=== PATIENT | female | born 1940 | race Caucasian/White ===

== ENCOUNTER 2018-12-10 22:45 | Inpatient (IN) | payer MEDICARE, MEDICAID ==
[~2018-12-10] VITALS: Ht 160 cm; Wt 75.1 kg
[~2018-12-10 22:45] MED LIST: BENA40TA73 PO; CITA20TA28 PO; CLOP75TA15 PO; GABA-532 PO; HCTZ25T PO
[2018-12-10] MEDS ORDERED: fentaNYL/PF 50MCG/1 ML 2ML syringe IV ONE (23:35)
--- NOTE | 2018-12-10 23:48 | NUR ---
VASC CALLED BACK AT 23:48. WILL BE IN SHORTLY
[2018-12-11 02:07] LABS: PARTIAL THROMBOPLASTIN TIME 25 SECONDS (22-32)
[2018-12-11 02:08] LABS: ALANINE AMINOTRANSFERASE 26 U/L (12-78); ALBUMIN 3.3 G/DL (3.4-5.0); ALBUMIN/GLOBULIN RATIO 0.9 (1.1-1.5); ALKALINE PHOSPHATASE 110 IU/L (46-116); ANION GAP 6 (8-16); ASPARTATE AMINO TRANSFERASE 14 U/L (10-37); BILIRUBIN,TOTAL 0.2 MG/DL (0.1-1.0); BLOOD UREA NITROGEN 10 MG/DL (7-18); CALCIUM 9.5 MG/DL (8.5-10.1); CHLORIDE 102 MMOL/L (99-107); CREATININE 0.77 MG/DL (0.40-0.90); GLUCOSE 219 MG/DL (70-104); POTASSIUM 3.4 MMOL/L (3.5-5.1); SODIUM 139 MMOL/L (135-145); TOTAL CARBON DIOXIDE 31.1 MMOL/L (24-32); TOTAL PROTEIN 7.1 G/DL (6.4-8.2); eGFR 72 ML/MIN
[2018-12-11 02:11] LABS: C-REACTIVE PROTEIN 0.13 MG/DL (0.0-0.5); MAGNESIUM 1.5 MG/DL (1.5-2.4); TROPONIN I < 0.04 NG/ML (0.0-0.05)
[2018-12-11 02:23] LABS: BASOPHILS # (AUTO) 0.1 X10'3 (0-0.2); BASOPHILS % (AUTO) 0.5 % (0-1); EOSINOPHILS # (AUTO) 0.1 X10'3 (0-0.9); EOSINOPHILS % (AUTO) 1.3 % (0-6); HEMATOCRIT 34.8 % (35.0-45.0); HEMOGLOBIN 11.4 g/dl (12.0-16.0); LYMPHOCYTES # (AUTO) 2.9 X10'3 (1.1-4.8); LYMPHOCYTES % (AUTO) 26.5 % (21-51); MEAN CORPUSCULAR HGB CONC 32.7 g/dL (33.0-36.5); MEAN CORPUSCULAR VOLUME 85.6 FL (78-98); MEAN PLATELET VOLUME 8.3 FL (7.4-10.4); MONOCYTES % (AUTO) 8.7 % (2-12); NEUTROPHILS # (AUTO) 6.9 X10'3 (1.8-7.7); PLATELET COUNT 405 X10'3 (140-440); RED BLOOD COUNT 4.07 X10'6 (4.20-5.60); RED CELL DISTRIBUTION WIDTH 17.4 % (11.5-14.5)
[2018-12-11] MEDS ORDERED: aspirin 325mg tablet PO ONE (02:30)
[2018-12-11] MEDS ORDERED: CefTRIAXone/D5W-Rocephin 1gm 50 ML IV ONE (02:30)
[2018-12-11] MEDS ORDERED: vancomycin/NS 1 GM ADD-VANTAGE 250 ML IV ONE (02:45)
[2018-12-11] MEDS ORDERED: FERR142T14 (02:52)
[2018-12-11] MEDS ORDERED: PSYL3.4P5 PO (02:53)
[2018-12-11] MEDS ORDERED: ATOR40TA PO (02:54)
[2018-12-11] MEDS ORDERED: HYDR-4353 PO (02:54)
[2018-12-11] MEDS ORDERED: GLIM4TAB4 PO (02:55)
[2018-12-11] MEDS ORDERED: METF500T PO (02:56)
[2018-12-11] MEDS ORDERED: ASCO500C15 PO (02:57)
[2018-12-11] MEDS ORDERED: ALB0.5UD IH (02:57)
[2018-12-11] MEDS ORDERED: FLUT16SP2 BOTHNARES (02:59)
[2018-12-11] MEDS ORDERED: glucagon, human recombinant 1mg kit SUBCUT PRN (03:20)
[2018-12-11] MEDS ORDERED: ondansetron/PF 4mg/2ml inj IV PRN (03:20)
[2018-12-11] MEDS ORDERED: acetaminophen 325mg tablet PO PRN (03:20)
[2018-12-11] MEDS ORDERED: HYDROcodone/acetaminophen 5mg/325mg tablet PO PRN (03:20)
[2018-12-11] MEDS ORDERED: MESSAGE TO PHARMACY PO ONE (03:20)
[2018-12-11] MEDS ORDERED: dextrose 50%-water 50ml dispensing syringe IV PRN ×2 (03:20)
[2018-12-11] MEDS ORDERED: mag hydrox/Alum hydrox/simeth 30ml oral suspension PO PRN (03:20)
[2018-12-11] MEDS ORDERED: magnesium hydroxide 30ml (MOM) UD suspension PO PRN (03:20)
[2018-12-11] MEDS ORDERED: dextrose ORAL solution 15 GM/59 ML bottle PO PRN ×2 (03:20)
[2018-12-11] MEDS ORDERED: HYDROcodone/acetaminophen 10/325mg tab PO PRN (03:25)
[2018-12-11] MEDS: normal saline 1000ml 1,000 ML IV SCH (04:20)
[2018-12-11] MEDS: fluticasone nasal spray 16GM bottle NS SCH (08:00)
[2018-12-11] MEDS: CefTRIAXone/D5W-Rocephin 1gm 50 ML IV SCH ×2 (08:00→08:34)
[2018-12-11] MEDS: HYDROcodone/acetaminophen 10/325mg tab PO PRN ×2 (08:35→15:17)
[2018-12-11] MEDS: citalopram 20mg tablet PO SCH (08:37)
[2018-12-11] MEDS: clopidogrel 75mg tablet PO SCH (08:37)
[2018-12-11] MEDS: atorvastatin 20mg tablet PO SCH (08:37)
[2018-12-11] MEDS: heparin, porcine 5000 units/ml vial SQ SCH ×2 (08:38→20:17)
[2018-12-11] MEDS: lisinopril 20mg tablet PO SCH (08:38)
[2018-12-11] MEDS: ascorbic acid 500mg tablet PO SCH (08:38)
[2018-12-11 08:42] LABS: COLOR,URINE YELLOW (Yellow); GLUCOSE, URINE 100 mg/dl (Neg); KETONES,URINE NEGATIVE (Neg); LEUKOCYTE ESTERASE ,URINE SMALL (Neg); NITRITES, URINE NEGATIVE (Neg); OCCULT BLOOD,URINE NEGATIVE (Neg); PH,URINE 5.5 (4.8-8.0); PROTEIN,URINE NEGATIVE (Neg); UROBILINOGEN,URINE 0.2 E.U/dL (0.2-1.0)
[2018-12-11 08:46] LABS: CLARITY,URINE SLIGHTLY CLOUDY (Clear); UA COLLECTION TYPE CLN CATCH MIDSTREAM
[2018-12-11 08:50] LABS: BACTERIA,URINE 1+ /HPF (Neg); MUCUS STRANDS NONE SEEN /LPF (Neg); RBC,URINE NONE SEEN /HPF (0-2); RENAL CELLS, URINE FEW /HPF; SQUAMOUS EPITHELIAL CELL,UR MODERATE /LPF (FEW); WBC CLUMPS,URINE FEW /HPF (NEGATIVE)
[2018-12-11] MEDS: vancomycin/NS 1 GM ADD-VANTAGE 250 ML IV SCH (16:44)
[2018-12-11 18:30] VITALS: BP 130/51
[2018-12-11] MEDS: lactobacillus rhamnosus 10,000 MMU CELLS/CAPSULE PO SCH (20:16)
[2018-12-11] MEDS: insulin glargine (Lantus) pen - multi-dose SQ SCH (21:00)
[2018-12-11 23:00] VITALS: BP 124/52
[2018-12-12] MEDS: normal saline 1000ml 1,000 ML IV SCH ×2 (00:14→19:43)
[2018-12-12] MEDS: HYDROcodone/acetaminophen 10/325mg tab PO PRN ×5 (00:15→23:57)
[2018-12-12] MEDS: vancomycin/NS 1 GM ADD-VANTAGE 250 ML IV SCH (03:47)
[2018-12-12 06:00] VITALS: BP 193/66
--- NOTE | 2018-12-12 06:33 | NUR ---
Problems reprioritized. Patient report given, questions answered & plan of care reviewed with NI. Addendum: 12/12/18 at 0634 by Sha Paul RN Amended: Links added.
--- NOTE | 2018-12-12 06:42 | NUR ---
report received from EDWIN Rangel.
[2018-12-12 06:57] LABS: BASOPHILS # (AUTO) 0.1 X10'3 (0-0.2); BASOPHILS % (AUTO) 0.7 % (0-1); EOSINOPHILS # (AUTO) 0.2 X10'3 (0-0.9); EOSINOPHILS % (AUTO) 2.5 % (0-6); HEMATOCRIT 34.6 % (35.0-45.0); HEMOGLOBIN 11.3 g/dl (12.0-16.0); LYMPHOCYTES # (AUTO) 2.6 X10'3 (1.1-4.8); LYMPHOCYTES % (AUTO) 32.5 % (21-51); MEAN CORPUSCULAR HEMOGLOBIN 28.3 PG (27.0-31.0); MEAN CORPUSCULAR HGB CONC 32.7 g/dL (33.0-36.5); MEAN CORPUSCULAR VOLUME 86.6 FL (78-98); MEAN PLATELET VOLUME 8.4 FL (7.4-10.4); MONOCYTES # (AUTO) 0.8 X10'3 (0-0.9); MONOCYTES % (AUTO) 10.1 % (2-12); NEUTROPHILS # (AUTO) 4.3 X10'3 (1.8-7.7); NEUTROPHILS % (AUTO) 54.2 % (42-75); PLATELET COUNT 272 X10'3 (140-440); RED BLOOD COUNT 3.99 X10'6 (4.20-5.60); RED CELL DISTRIBUTION WIDTH 17.3 % (11.5-14.5); WHITE BLOOD COUNT 7.9 X10'3 (4.5-11.0)
[2018-12-12 07:24] LABS: ALANINE AMINOTRANSFERASE 29 U/L (12-78); ALBUMIN 2.9 G/DL (3.4-5.0); ALBUMIN/GLOBULIN RATIO 0.8 (1.1-1.5); ALKALINE PHOSPHATASE 98 IU/L (46-116); ANION GAP 10 (8-16); ASPARTATE AMINO TRANSFERASE 22 U/L (10-37); BILIRUBIN,TOTAL 0.3 MG/DL (0.1-1.0); BLOOD UREA NITROGEN 11 MG/DL (7-18); BUN/CREATININE RATIO 18.6 (6.6-38.0); CALCIUM 8.6 MG/DL (8.5-10.1); CHLORIDE 106 MMOL/L (99-107); CREATININE 0.59 MG/DL (0.40-0.90); GLUCOSE 152 MG/DL (70-104); SODIUM 141 MMOL/L (135-145); TOTAL CARBON DIOXIDE 24.8 MMOL/L (24-32); TOTAL PROTEIN 6.6 G/DL (6.4-8.2); eGFR > 90 ML/MIN
[2018-12-12] MEDS: CefTRIAXone/D5W-Rocephin 1gm 50 ML IV SCH (07:28)
[2018-12-12] MEDS: clopidogrel 75mg tablet PO SCH (07:29)
[2018-12-12] MEDS: atorvastatin 20mg tablet PO SCH (07:29)
[2018-12-12] MEDS: citalopram 20mg tablet PO SCH (07:29)
[2018-12-12] MEDS: ascorbic acid 500mg tablet PO SCH (07:29)
[2018-12-12] MEDS: lactobacillus rhamnosus 10,000 MMU CELLS/CAPSULE PO SCH ×2 (07:29→19:41)
[2018-12-12] MEDS: lisinopril 20mg tablet PO SCH (07:30)
[2018-12-12] MEDS: heparin, porcine 5000 units/ml vial SQ SCH ×2 (07:30→19:49)
[2018-12-12] MEDS: fluticasone nasal spray 16GM bottle NS SCH (07:38)
[2018-12-12] MEDS ORDERED: CEPH250T PO (07:55)
[2018-12-12 10:00] VITALS: BP 143/46
[2018-12-12] MEDS ORDERED: VANCOMYCIN LEVEL IV ONE (15:30)
[2018-12-12 18:00] VITALS: BP 147/70
--- NOTE | 2018-12-12 18:20 | NUR ---
Report given to EDWIN Rogers. Pt gregory.
--- NOTE | 2018-12-12 18:24 | NUR ---
Patient in room ORTHO 4022. I have received report from Gayle PINEDA and Amy hospital nursing assistant and had the opportunity to ask questions and assume patient care.
[2018-12-12] MEDS: VANCOmycin 1250MG/NS 250ml Bag 250 ML IV SCH (19:43)
[2018-12-12] MEDS: insulin glargine (Lantus) pen - multi-dose SQ SCH (21:00)
[2018-12-12 22:00] VITALS: BP 127/61
[2018-12-13] MEDS: VANCOmycin 1250MG/NS 250ml Bag 250 ML IV SCH ×2 (05:49→19:44)
[2018-12-13 06:00] VITALS: BP 161/56
[2018-12-13 06:02] LABS: BASOPHILS % (AUTO) 0.4 % (0-1); EOSINOPHILS # (AUTO) 0.2 X10'3 (0-0.9); EOSINOPHILS % (AUTO) 2.6 % (0-6); HEMATOCRIT 33.3 % (35.0-45.0); HEMOGLOBIN 10.9 g/dl (12.0-16.0); LYMPHOCYTES # (AUTO) 2.6 X10'3 (1.1-4.8); LYMPHOCYTES % (AUTO) 34.8 % (21-51); MEAN CORPUSCULAR HEMOGLOBIN 28.1 PG (27.0-31.0); MEAN CORPUSCULAR HGB CONC 32.8 g/dL (33.0-36.5); MEAN CORPUSCULAR VOLUME 85.6 FL (78-98); MEAN PLATELET VOLUME 8.4 FL (7.4-10.4); MONOCYTES # (AUTO) 0.8 X10'3 (0-0.9); MONOCYTES % (AUTO) 10.4 % (2-12); NEUTROPHILS # (AUTO) 3.8 X10'3 (1.8-7.7); NEUTROPHILS % (AUTO) 51.8 % (42-75); PLATELET COUNT 353 X10'3 (140-440); RED BLOOD COUNT 3.89 X10'6 (4.20-5.60); RED CELL DISTRIBUTION WIDTH 17.4 % (11.5-14.5); WHITE BLOOD COUNT 7.4 X10'3 (4.5-11.0)
--- NOTE | 2018-12-13 06:16 | NUR ---
Problems reprioritized. Patient report given, questions answered & plan of care reviewed with Gayle PINEDA.
--- NOTE | 2018-12-13 06:26 | NUR ---
report received from EDWIN Rogers.
[2018-12-13 06:56] LABS: ALANINE AMINOTRANSFERASE 46 U/L (12-78); ALBUMIN 2.9 G/DL (3.4-5.0); ALBUMIN/GLOBULIN RATIO 0.8 (1.1-1.5); ALKALINE PHOSPHATASE 108 IU/L (46-116); ANION GAP 6 (8-16); ASPARTATE AMINO TRANSFERASE 37 U/L (10-37); BILIRUBIN,TOTAL 0.3 MG/DL (0.1-1.0); BLOOD UREA NITROGEN 12 MG/DL (7-18); BUN/CREATININE RATIO 18.2 (6.6-38.0); CALCIUM 9.3 MG/DL (8.5-10.1); CHLORIDE 107 MMOL/L (99-107); CREATININE 0.66 MG/DL (0.40-0.90); GLUCOSE 147 MG/DL (70-104); POTASSIUM 4.2 MMOL/L (3.5-5.1); SODIUM 140 MMOL/L (135-145); TOTAL CARBON DIOXIDE 26.9 MMOL/L (24-32); TOTAL PROTEIN 6.7 G/DL (6.4-8.2); eGFR 86 ML/MIN
[2018-12-13] MEDS: fluticasone nasal spray 16GM bottle NS SCH (07:23)
[2018-12-13] MEDS: citalopram 20mg tablet PO SCH (07:35)
[2018-12-13] MEDS: lactobacillus rhamnosus 10,000 MMU CELLS/CAPSULE PO SCH ×2 (07:35→19:33)
[2018-12-13] MEDS: atorvastatin 20mg tablet PO SCH (07:36)
[2018-12-13] MEDS: clopidogrel 75mg tablet PO SCH (07:36)
[2018-12-13] MEDS: ascorbic acid 500mg tablet PO SCH (07:37)
[2018-12-13] MEDS: lisinopril 20mg tablet PO SCH (07:37)
[2018-12-13] MEDS: heparin, porcine 5000 units/ml vial SQ SCH ×2 (07:39→19:36)
[2018-12-13] MEDS: CefTRIAXone/D5W-Rocephin 1gm 50 ML IV SCH ×2 (07:46→08:38)
[2018-12-13] MEDS: HYDROcodone/acetaminophen 10/325mg tab PO PRN ×3 (08:44→19:34)
[2018-12-13 10:00] VITALS: BP 192/63
[2018-12-13] MEDS ORDERED: diphenhydrAMINE 25mg capsule PO ONE (10:00)
--- NOTE | 2018-12-13 14:33 | NUR ---
DIABETIC FOOT CARE EDUCATION PROVIDED BY WOUND [facility] * Wash your feet daily with lukewarm water and soap. * Dry your feet well, especially between the toes. * Keep the skin moisturized with lotion, but do not apply it between the toes. * Check your feet for blisters, cuts or sores. * Use an emery board to shape your toenails even with the ends of your toes. * Change daily into clean, soft socks or stockings, not too big or too small. * Keep your feet warm and dry. * Preferably wear special padded socks and shoes that fit well. * Never walk barefoot indoors or outdoors. * Examine your shoes everyday for cracks, tony, nails or anything that could hurt your feet. * Tell your doctor if you find any of these problems or have any concerns after examining your feet. Addendum: 12/13/18 at 1433 by Edith Graves RN Amended: Links added.
[2018-12-13] MEDS: albuterol 2.5 MG/3 ML nebule NEB PRN (16:41)
--- NOTE | 2018-12-13 18:29 | NUR ---
Report given to EDWIN Correa, pt stable.
--- NOTE | 2018-12-13 18:30 | NUR ---
Patient in room ORTHO 4022. I have received report from NI PINEDA and had the opportunity to ask questions and assume patient care.
[2018-12-13 18:45] VITALS: BP 164/59
[2018-12-13] MEDS: insulin glargine (Lantus) pen - multi-dose SQ SCH (21:00)
[2018-12-13] MEDS: prednisone 10mg tablet PO PRN (21:18)
[2018-12-13 22:00] VITALS: BP 169/57
[2018-12-14] MEDS ORDERED: VANCOMYCIN LEVEL IV ONE (04:30)
[2018-12-14] MEDS: prednisone 10mg tablet PO PRN (04:41)
[2018-12-14] MEDS: VANCOmycin 1250MG/NS 250ml Bag 250 ML IV SCH (05:00)
[2018-12-14 05:11] LABS: BASOPHILS % (AUTO) 0.2 % (0-1); EOSINOPHILS % (AUTO) 0.1 % (0-6); HEMATOCRIT 36.7 % (35.0-45.0); LYMPHOCYTES # (AUTO) 0.8 X10'3 (1.1-4.8); LYMPHOCYTES % (AUTO) 9.2 % (21-51); MEAN CORPUSCULAR HGB CONC 32.6 g/dL (33.0-36.5); MEAN CORPUSCULAR VOLUME 85.8 FL (78-98); MEAN PLATELET VOLUME 8.5 FL (7.4-10.4); MONOCYTES # (AUTO) 0.1 X10'3 (0-0.9); MONOCYTES % (AUTO) 1.2 % (2-12); NEUTROPHILS # (AUTO) 7.6 X10'3 (1.8-7.7); NEUTROPHILS % (AUTO) 89.3 % (42-75); PLATELET COUNT 402 X10'3 (140-440); RED BLOOD COUNT 4.28 X10'6 (4.20-5.60); RED CELL DISTRIBUTION WIDTH 17.5 % (11.5-14.5); WHITE BLOOD COUNT 8.5 X10'3 (4.5-11.0)
[2018-12-14 05:23] LABS: ALANINE AMINOTRANSFERASE 71 U/L (12-78); ALBUMIN 3.3 G/DL (3.4-5.0); ALBUMIN/GLOBULIN RATIO 0.8 (1.1-1.5); ALKALINE PHOSPHATASE 141 IU/L (46-116); ANION GAP 10 (8-16); ASPARTATE AMINO TRANSFERASE 46 U/L (10-37); BILIRUBIN,TOTAL 0.3 MG/DL (0.1-1.0); BLOOD UREA NITROGEN 11 MG/DL (7-18); BUN/CREATININE RATIO 13.6 (6.6-38.0); CALCIUM 9.4 MG/DL (8.5-10.1); CHLORIDE 104 MMOL/L (99-107); CREATININE 0.81 MG/DL (0.40-0.90); GLUCOSE 283 MG/DL (70-104); POTASSIUM 4.1 MMOL/L (3.5-5.1); SODIUM 139 MMOL/L (135-145); TOTAL CARBON DIOXIDE 25.3 MMOL/L (24-32); TOTAL PROTEIN 7.5 G/DL (6.4-8.2); eGFR 68 ML/MIN
[2018-12-14 05:25] LABS: VANCOMYCIN,TROUGH 21.8 UG/ML (6.0-14.0)
[2018-12-14 06:00] VITALS: BP 180/69
--- NOTE | 2018-12-14 06:27 | NUR ---
Problems reprioritized. Patient report given, questions answered & plan of care reviewed with YOON PINEDA.
--- NOTE | 2018-12-14 06:45 | NUR ---
Patient in room ORTHO 4022. I have received report from Miranda Jean RN and had the opportunity to ask questions and assume patient care.
[2018-12-14] MEDS: albuterol 2.5 MG/3 ML nebule NEB PRN (07:52)
[2018-12-14] MEDS: heparin, porcine 5000 units/ml vial SQ SCH ×2 (07:52→19:16)
[2018-12-14] MEDS: vancomycin/NS 1 GM ADD-VANTAGE 250 ML IV SCH ×2 (07:52→19:10)
[2018-12-14] MEDS: ascorbic acid 500mg tablet PO SCH (07:53)
[2018-12-14] MEDS: atorvastatin 20mg tablet PO SCH (07:53)
[2018-12-14] MEDS: lactobacillus rhamnosus 10,000 MMU CELLS/CAPSULE PO SCH ×2 (07:53→19:10)
[2018-12-14] MEDS: citalopram 20mg tablet PO SCH (07:53)
[2018-12-14] MEDS: lisinopril 20mg tablet PO SCH (07:53)
[2018-12-14] MEDS: clopidogrel 75mg tablet PO SCH (07:54)
[2018-12-14] MEDS: fluticasone nasal spray 16GM bottle NS SCH (08:00)
[2018-12-14] MEDS: HYDROcodone/acetaminophen 10/325mg tab PO PRN ×3 (08:19→19:11)
[2018-12-14] MEDS: insulin Lispro (HumaLOG) vial - multi-dose SQ SCH ×4 (08:29→21:07)
[2018-12-14] MEDS ORDERED: diphenhydrAMINE 25mg capsule PO ONE (09:00)
[2018-12-14 10:00] VITALS: BP 143/63
[2018-12-14] MEDS ORDERED: prednisone 10mg tablet PO ONE (10:25)
[2018-12-14] MEDS ORDERED: iohexol 350MG/ML 100ml bottle IV ONE (11:41)
[2018-12-14] MEDS ORDERED: MESSAGE TO NURSING PO ONE (12:30)
--- NOTE | 2018-12-14 15:22 | NUR ---
Cleopatra hospitalist [phone] CT resulted, will continue to monitor
[2018-12-14] MEDS ORDERED: regadenoson 0.4mg/5ml syringe IV ONE (16:30)
[2018-12-14] MEDS ORDERED: nitroGLYCERIN 0.4mg SUBLingual tab SL PRN (16:30)
[2018-12-14] MEDS ORDERED: metoprolol tartrate 1mg/ml inj IV PRN (16:30)
[2018-12-14] MEDS ORDERED: aminophylline 250mg/10ml inj. IV PRN (16:30)
[2018-12-14 18:00] VITALS: BP 143/62
--- NOTE | 2018-12-14 18:21 | NUR ---
Problems reprioritized. Patient report given, questions answered & plan of care reviewed with Pretty PINEDA.
--- NOTE | 2018-12-14 18:21 | NUR ---
Received report from Carlos PINEDA.
[2018-12-14] MEDS: insulin glargine (Lantus) pen - multi-dose SQ SCH (21:07)
[2018-12-14 22:00] VITALS: BP 145/50
[2018-12-15] VITALS (32 sets, daily range): BP systolic 101–203; BP diastolic 34–92
--- NOTE | 2018-12-15 06:22 | NUR ---
Report given to Ephraim PINEDA.
--- NOTE | 2018-12-15 06:25 | NUR ---
Patient in room ORTHO 4022. I have received report from Pretty PINEDA and had the opportunity to ask questions and assume patient care.
[2018-12-15 06:30] LABS: BASOPHILS % (AUTO) 0.4 % (0-1); EOSINOPHILS % (AUTO) 0.2 % (0-6); HEMATOCRIT 31.1 % (35.0-45.0); HEMOGLOBIN 10.4 g/dl (12.0-16.0); LYMPHOCYTES # (AUTO) 2.3 X10'3 (1.1-4.8); LYMPHOCYTES % (AUTO) 21.1 % (21-51); MEAN CORPUSCULAR HEMOGLOBIN 28.5 PG (27.0-31.0); MEAN CORPUSCULAR HGB CONC 33.3 g/dL (33.0-36.5); MEAN CORPUSCULAR VOLUME 85.4 FL (78-98); MEAN PLATELET VOLUME 8.9 FL (7.4-10.4); MONOCYTES # (AUTO) 1.1 X10'3 (0-0.9); NEUTROPHILS # (AUTO) 7.6 X10'3 (1.8-7.7); NEUTROPHILS % (AUTO) 68.3 % (42-75); PLATELET COUNT 339 X10'3 (140-440); RED BLOOD COUNT 3.64 X10'6 (4.20-5.60); WHITE BLOOD COUNT 11.1 X10'3 (4.5-11.0)
[2018-12-15 06:47] LABS: ALANINE AMINOTRANSFERASE 55 U/L (12-78); ALBUMIN 2.8 G/DL (3.4-5.0); ALBUMIN/GLOBULIN RATIO 0.8 (1.1-1.5); ALKALINE PHOSPHATASE 100 IU/L (46-116); ANION GAP 8 (8-16); ASPARTATE AMINO TRANSFERASE 28 U/L (10-37); BILIRUBIN,TOTAL 0.2 MG/DL (0.1-1.0); BLOOD UREA NITROGEN 13 MG/DL (7-18); BUN/CREATININE RATIO 21.7 (6.6-38.0); CALCIUM 9.1 MG/DL (8.5-10.1); CHLORIDE 106 MMOL/L (99-107); GLUCOSE 154 MG/DL (70-104); POTASSIUM 3.4 MMOL/L (3.5-5.1); SODIUM 142 MMOL/L (135-145); TOTAL PROTEIN 6.1 G/DL (6.4-8.2); eGFR > 90 ML/MIN
[2018-12-15] MEDS ORDERED: iohexol 300 MG/1 ML 50ml polymer ONE (07:04)
[2018-12-15] MEDS ORDERED: heparin 10,000 units/1 ML INJ ONE (07:06)
[2018-12-15] MEDS: lactobacillus rhamnosus 10,000 MMU CELLS/CAPSULE PO SCH ×2 (07:07→20:00)
[2018-12-15] MEDS: vancomycin/NS 1 GM ADD-VANTAGE 250 ML IV SCH ×2 (07:07→19:36)
[2018-12-15] MEDS: lisinopril 20mg tablet PO SCH (07:08)
[2018-12-15] MEDS: atorvastatin 20mg tablet PO SCH (07:08)
[2018-12-15] MEDS: fluticasone nasal spray 16GM bottle NS SCH (07:09)
[2018-12-15] MEDS: citalopram 20mg tablet PO SCH (07:09)
[2018-12-15] MEDS: clopidogrel 75mg tablet PO SCH (07:09)
[2018-12-15] MEDS: heparin, porcine 5000 units/ml vial SQ SCH (07:10)
[2018-12-15] MEDS: ascorbic acid 500mg tablet PO SCH (07:12)
[2018-12-15] MEDS ORDERED: regadenoson 0.4mg/5ml syringe IV ONE (08:00)
--- NOTE | 2018-12-15 08:30 | NUR ---
left floor for Camelia scan
--- NOTE | 2018-12-15 08:41 | NUR ---
patient refused insulin. patient educated on risk of hyperglycemia .
--- NOTE | 2018-12-15 09:12 | NUR ---
Ephraim 4907 Re: White. Potassium 3.4. do you want me to replace?
--- NOTE | 2018-12-15 09:17 | NUR ---
did not give patient insulin. Patient was NPO for morning surgery and 0700 BS 154.
[2018-12-15] MEDS: HYDROcodone/acetaminophen 10/325mg tab PO PRN (10:40)
--- NOTE | 2018-12-15 11:13 | NUR ---
Student documentation: I have reviewed interventions, assessments performed and documented by NEELIMA Mauro [facility].
[2018-12-15] MEDS ORDERED: LIDOcaine 1% W/epiNEPHrine 1:200,000 10ml vial ONE (12:07)
[2018-12-15] MEDS ORDERED: LIDOcaine 1% (10mg/ml) 2ml vial ONE (12:09)
--- NOTE | 2018-12-15 13:03 | NUR ---
patient going for surgery. BS was 133 at 1200. held insulin.
--- NOTE | 2018-12-15 13:03 | NUR ---
patient refused insulin. notified.
--- NOTE | 2018-12-15 13:15 | NUR ---
went down to surgery
[2018-12-15] MEDS ORDERED: sevoflurane 250ml liquid IH ONE (14:06)
[2018-12-15] MEDS ORDERED: phenylephrine 10mg/ml inj. ONE (14:06)
--- NOTE | 2018-12-15 14:18 | NUR ---
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 L toe open full-thickness ulcer w/ 5th toe old wound mostly healed per WOC notes. Hx T2DM A1C <7. Pt PO 75-100% avg carb controlled meals meeting healing needs. Receiving vitamin C. LBM 12/10; SCOTTY d/w RN regarding routine bowel care per MD approval. Will continue to monitor. Rec: 1. continue carb controlled diet 2. monitor for ONS needs if PO declines 3. wt per rx Addendum: 12/15/18 at [address] Amended: Links added.
[2018-12-15] MEDS ORDERED: fentaNYL /PF 50mcg/ml 5ml ampule ONE (15:05)
[2018-12-15] MEDS ORDERED: ceFOXitin 2 GM ADDvantage bag 100 ML IV ONE (15:54)
[2018-12-15] MEDS ORDERED: ringers solution, lacted 1,000 ML IV SCH (16:19)
[2018-12-15] MEDS ORDERED: HYDROmorphone inj. 0.5 MG/0.5 ML DISP.SYRIN IV PRN (16:20)
--- NOTE | 2018-12-15 16:52 | NUR ---
Problems reprioritized. Patient report given, questions answered & plan of care reviewed with Charles PINEDA.
[2018-12-15] MEDS ORDERED: glycopyrrolate 0.2mg/ml inj ONE ×2 (16:53→17:53)
[2018-12-15] MEDS ORDERED: propofol inj 20 ML IV ONE (16:53)
[2018-12-15] MEDS ORDERED: neostigmine methylsulfate 1 MG/ML 10ml vial ONE ×2 (16:53→17:53)
[2018-12-15] MEDS ORDERED: LIDOcaine 2% (20mg/ml) 5ml vial ONE (16:53)
[2018-12-15] MEDS ORDERED: ePHEDrine 50MG/ML INJ. ONE (16:53)
[2018-12-15] MEDS ORDERED: labetalol 20mg/4ml (5mg/ml) syringe IV ONE (16:53)
[2018-12-15] MEDS ORDERED: ondansetron/PF 4mg/2ml inj ONE (16:53)
[2018-12-15] MEDS ORDERED: rocuronium 10mg/ml inj IV ONE (16:53)
[2018-12-15] MEDS ORDERED: sugammadex 200mg/2ml injection IV ONE (17:05)
[2018-12-15] MEDS ORDERED: protamine sulfate 10mg/ml inj. ONE (17:05)
[2018-12-15] MEDS ORDERED: insulin regular, human vial - multi-dose ONE (17:11)
--- NOTE | 2018-12-15 17:32 | NUR ---
Received from OR via , accompanied by Anesthesiologist DR STREETER and report given by Anesthesiolgist. AWAKENS TO VOICE. VITALS STABLE. DRESSINGS DI. STATES MODERATE LT GROIN PAIN. WILL MEDICATE. DENTON WITH CLEAR URINE.
[2018-12-15 17:38] LABS: PARTIAL THROMBOPLASTIN TIME 25 SECONDS (22-32)
[2018-12-15] MEDS: morphine 4 MG/ML inj SYRINge IV PRN ×3 (17:51→22:44)
[2018-12-15] MEDS ORDERED: hydrALAZINE 20mg/ml inj. IV ONE (17:53)
[2018-12-15 17:56] LABS: ISTAT ANION GAP 14 (8-12); ISTAT BUN 8 mg/dL (6-19); ISTAT CL 105 mmol/L (99-107); ISTAT CREATININE 0.4 mg/dL (0.6-1.1); ISTAT GLUCOSE 140 mg/dL (70-104); ISTAT HGB 8.8 g/dl (12.0-16.0); ISTAT Hct 26 %PCV (35-48); ISTAT NA 141 mmol/L (135-145); ISTAT TOTAL CO2 22 mmol/L (24-32); ISTAT eGFR > 90 ML/MIN
[2018-12-15] MEDS ORDERED: HYDROcodone/acetaminophen 10/325mg tab PO PRN (18:10)
[2018-12-15] MEDS ORDERED: VANCOMYCIN LEVEL IV ONE (18:30)
--- NOTE | 2018-12-15 18:42 | NUR ---
Report called to receiving nurse. Transferred via BED Belongings . Special Issues communicated to receiving nurse. AWAKE AND ORIENTED. VITALS STABLE. DRESSINGS DI. STATES PAIN IMPROVING. TO ICU RM 2041 AT THIS TIME.
[2018-12-15 18:51] LABS: ISTAT K 2.8 mmol/L (3.5-5.1)
--- NOTE | 2018-12-15 19:10 | NUR ---
K+ results received 3.0 from Kat in Lab, results called to Dr. Saleh, orders received.
[2018-12-15] MEDS ORDERED: magnesium 4gm in 100ml NS 100 ML IV PRN (19:15)
[2018-12-15] MEDS ORDERED: magnesium 2GM in 50ml NS 50 ML IV PRN (19:15)
[2018-12-15] MEDS ORDERED: potassium Cl 20 mEq SR tablet PO PRN (19:15)
[2018-12-15] MEDS: potassium Cl 20mEq/100mL bag 100 ML IV PRN ×4 (19:42→22:45)
--- NOTE | 2018-12-15 19:50 | NUR ---
Pt arrived from recovery room, awake & alert. Right IJ triple lumen central line is transduced. LR infusing at 100ml/hr. Right radial arterial line intact, right hand is warm with brisk capillary refill. Left groin with wound vac, left calf with occlusive dressing, drainage marked. bilateral pedal/posterior tibial pulses with doppler only. Left foot is warm with brisk capillary refill. Indwelling souza cath drains clear yellow urine.Pt nauseated upon arrival, nausea subsided shortly upon arrival.
[2018-12-15] MEDS ORDERED: ceFOXitin 2 GM ADDvantage bag 100 ML IV SCH (20:00)
[2018-12-15] MEDS: insulin glargine (Lantus) pen - multi-dose SQ SCH (21:00)
[2018-12-15 22:31] LABS: ISTAT ANION GAP 12 (8-12); ISTAT BUN 9 mg/dL (6-19); ISTAT CL 104 mmol/L (99-107); ISTAT CREATININE 0.4 mg/dL (0.6-1.1); ISTAT GLUCOSE 171 mg/dL (70-104); ISTAT HGB 8.5 g/dl (12.0-16.0); ISTAT Hct 25 %PCV (35-48); ISTAT IONIZED CALCIUM 1.22 mmol/L (1.03-1.32); ISTAT K 3.3 mmol/L (3.5-5.1); ISTAT NA 140 mmol/L (135-145); ISTAT TOTAL CO2 24 mmol/L (24-32); ISTAT eGFR > 90 ML/MIN; POC BUN/CREATININE RATIO 22.5 (6.6-38.0)
[2018-12-16] VITALS (26 sets, daily range): BP systolic 105–188; BP diastolic 39–63
[2018-12-16] MEDS: HYDROmorphone inj. 0.5 MG/0.5 ML DISP.SYRIN IV PRN ×2 (00:06→04:33)
[2018-12-16] MEDS: HYDROcodone/acetaminophen 10/325mg tab PO PRN ×2 (01:36→20:35)
[2018-12-16 02:57] LABS: BASOPHILS % (AUTO) 0.3 % (0-1); EOSINOPHILS % (AUTO) 0.1 % (0-6); HEMATOCRIT 26.3 % (35.0-45.0); HEMOGLOBIN 8.5 g/dl (12.0-16.0); LYMPHOCYTES # (AUTO) 1.5 X10'3 (1.1-4.8); LYMPHOCYTES % (AUTO) 12.6 % (21-51); MEAN CORPUSCULAR HEMOGLOBIN 28.1 PG (27.0-31.0); MEAN CORPUSCULAR HGB CONC 32.3 g/dL (33.0-36.5); MEAN PLATELET VOLUME 8.7 FL (7.4-10.4); MONOCYTES # (AUTO) 1.3 X10'3 (0-0.9); MONOCYTES % (AUTO) 10.9 % (2-12); NEUTROPHILS # (AUTO) 8.8 X10'3 (1.8-7.7); NEUTROPHILS % (AUTO) 76.1 % (42-75); PLATELET COUNT 299 X10'3 (140-440); RED BLOOD COUNT 3.02 X10'6 (4.20-5.60); RED CELL DISTRIBUTION WIDTH 17.9 % (11.5-14.5); WHITE BLOOD COUNT 11.6 X10'3 (4.5-11.0)
[2018-12-16 03:09] LABS: ALANINE AMINOTRANSFERASE 46 U/L (12-78); ALBUMIN 2.6 G/DL (3.4-5.0); ALBUMIN/GLOBULIN RATIO 0.9 (1.1-1.5); ALKALINE PHOSPHATASE 85 IU/L (46-116); ANION GAP 5 (8-16); ASPARTATE AMINO TRANSFERASE 22 U/L (10-37); BILIRUBIN,TOTAL 0.3 MG/DL (0.1-1.0); BLOOD UREA NITROGEN 10 MG/DL (7-18); BUN/CREATININE RATIO 16.1 (6.6-38.0); CALCIUM 7.7 MG/DL (8.5-10.1); CHLORIDE 110 MMOL/L (99-107); CHOL/HDL RATIO 2.5 (0.00-4.99); CHOLESTEROL 104 MG/DL (0-200); CREATININE 0.62 MG/DL (0.40-0.90); GLUCOSE 143 MG/DL (70-104); HDL CHOLESTEROL 42 MG/DL (35-60); LDL CHOLESTEROL 51 MG/DL (50-100); POTASSIUM 4.5 MMOL/L (3.5-5.1); SODIUM 141 MMOL/L (135-145); TOTAL CARBON DIOXIDE 25.6 MMOL/L (24-32); TOTAL PROTEIN 5.5 G/DL (6.4-8.2); TRIGLYCERIDES 63 MG/DL (20-135); eGFR > 90 ML/MIN
[2018-12-16] MEDS ORDERED: enalaprilat dihydrate 2.5mg/2ml vial IV PRN ×2 (04:10→04:15)
--- NOTE | 2018-12-16 04:12 | NUR ---
SBP elevated 180's. Orders received for Vasotec. Awaiting pharmacy verification to administer.
--- NOTE | 2018-12-16 04:45 | NUR ---
BP 147/45 pt resting comfortably at this time.
[2018-12-16] MEDS: morphine 4 MG/ML inj SYRINge IV PRN (04:47)
[2018-12-16] MEDS ORDERED: ringers solution, lacted 1,000 ML IV SCH (05:10)
[2018-12-16 05:53] LABS: MAGNESIUM 1.5 MG/DL (1.5-2.4)
[2018-12-16] MEDS ORDERED: enalaprilat dihydrate 2.5mg/2ml vial IV SCH (06:00)
[2018-12-16] MEDS: ceFOXitin 2 GM ADDvantage bag 100 ML IV SCH ×2 (06:16→12:00)
--- NOTE | 2018-12-16 06:35 | NUR ---
Problems reprioritized. Patient report given, questions answered & plan of care reviewed with Aislinn PINEDA.
[2018-12-16] MEDS: fluticasone nasal spray 16GM bottle NS SCH (08:00)
[2018-12-16] MEDS: K and/or MAG REPLACEMENT MC SCH (08:00)
[2018-12-16] MEDS: VANCOmycin 1250MG/NS 250ml Bag 250 ML IV SCH ×2 (09:06→20:21)
[2018-12-16] MEDS: atorvastatin 20mg tablet PO SCH (09:06)
[2018-12-16] MEDS: ascorbic acid 500mg tablet PO SCH (09:07)
[2018-12-16] MEDS: lisinopril 20mg tablet PO SCH (09:07)
[2018-12-16] MEDS: citalopram 20mg tablet PO SCH (09:07)
[2018-12-16] MEDS: lactobacillus rhamnosus 10,000 MMU CELLS/CAPSULE PO SCH ×2 (09:08→20:21)
[2018-12-16] MEDS: clopidogrel 75mg tablet PO SCH (09:08)
[2018-12-16] MEDS ORDERED: HYDROmorphone 1 mg/ml syringe ONE (11:30)
[2018-12-16] MEDS ORDERED: ceFOXitin 2 GM ADDvantage bag 100 ML IV SCH (13:17)
--- NOTE | 2018-12-16 17:50 | NUR ---
Pt.'s L leg more swollen, skin shiny, tighter. Dr. Mcdermott is aware. Pulses present with doppler. Pt. stated that pain remains the same and has not gotten worse.
--- NOTE | 2018-12-16 18:50 | NUR ---
Patient in room ICU 2041. I have received report from EDWIN Tao and had the opportunity to ask questions and assume patient care. Patients left lower extremity examined with EDWIN Tao. Pedal pulses marked and present with dopplar. Dr. Mcdermott at bedside to look at left leg. He will talk to Dr. Saleh.
--- NOTE | 2018-12-16 19:05 | NUR ---
Report given to EDWIN Jimenez
--- NOTE | 2018-12-16 19:48 | NUR ---
Call to Dr. Saleh re: increase in left leg swelling. Skin is shiny, Patient c/o pain at 6/10 states its not getting any worse and is much better than before her surgery. Pedal pulses intact. Per Dr. Saleh no new orders at this time. Continue to monitor call back if the calf becomes tight.
--- NOTE | 2018-12-16 20:51 | NUR ---
calf measurement 35 cm
[2018-12-16] MEDS: insulin Lispro (HumaLOG) vial - multi-dose SQ SCH (22:10)
[2018-12-16] MEDS: insulin glargine (Lantus) pen - multi-dose SQ SCH (22:12)
[2018-12-17] VITALS (20 sets, daily range): BP systolic 122–190; BP diastolic 37–65
[2018-12-17 04:11] LABS: BASOPHILS # (AUTO) 0.1 X10'3 (0-0.2); BASOPHILS % (AUTO) 0.8 % (0-1); EOSINOPHILS # (AUTO) 0.1 X10'3 (0-0.9); EOSINOPHILS % (AUTO) 0.9 % (0-6); HEMATOCRIT 23.4 % (35.0-45.0); HEMOGLOBIN 7.7 g/dl (12.0-16.0); LYMPHOCYTES # (AUTO) 1.8 X10'3 (1.1-4.8); LYMPHOCYTES % (AUTO) 19.3 % (21-51); MEAN CORPUSCULAR HEMOGLOBIN 28.8 PG (27.0-31.0); MEAN CORPUSCULAR VOLUME 87.2 FL (78-98); MEAN PLATELET VOLUME 8.9 FL (7.4-10.4); MONOCYTES # (AUTO) 1.3 X10'3 (0-0.9); MONOCYTES % (AUTO) 13.6 % (2-12); NEUTROPHILS # (AUTO) 6.2 X10'3 (1.8-7.7); NEUTROPHILS % (AUTO) 65.4 % (42-75); PLATELET COUNT 228 X10'3 (140-440); RED BLOOD COUNT 2.68 X10'6 (4.20-5.60); RED CELL DISTRIBUTION WIDTH 17.3 % (11.5-14.5); WHITE BLOOD COUNT 9.5 X10'3 (4.5-11.0)
[2018-12-17 04:32] LABS: ALANINE AMINOTRANSFERASE 34 U/L (12-78); ALBUMIN 2.2 G/DL (3.4-5.0); ALBUMIN/GLOBULIN RATIO 0.7 (1.1-1.5); ALKALINE PHOSPHATASE 74 IU/L (46-116); ANION GAP 8 (8-16); ASPARTATE AMINO TRANSFERASE 16 U/L (10-37); BILIRUBIN,TOTAL 0.5 MG/DL (0.1-1.0); BLOOD UREA NITROGEN 5 MG/DL (7-18); BUN/CREATININE RATIO 9.3 (6.6-38.0); CALCIUM 8.5 MG/DL (8.5-10.1); CHLORIDE 105 MMOL/L (99-107); CREATININE 0.54 MG/DL (0.40-0.90); GLUCOSE 175 MG/DL (70-104); MAGNESIUM 1.8 MG/DL (1.5-2.4); POTASSIUM 3.4 MMOL/L (3.5-5.1); SODIUM 140 MMOL/L (135-145); TOTAL CARBON DIOXIDE 26.9 MMOL/L (24-32); TOTAL PROTEIN 5.4 G/DL (6.4-8.2); eGFR > 90 ML/MIN
[2018-12-17] MEDS: HYDROcodone/acetaminophen 10/325mg tab PO PRN ×3 (05:59→21:23)
--- NOTE | 2018-12-17 06:28 | NUR ---
Problems reprioritized. Patient report given, questions answered & plan of care reviewed with EDWIN Tao and EDWIN Lowe.
[2018-12-17] MEDS: VANCOmycin 1250MG/NS 250ml Bag 250 ML IV SCH ×2 (07:44→19:00)
[2018-12-17] MEDS: lactobacillus rhamnosus 10,000 MMU CELLS/CAPSULE PO SCH ×2 (07:44→20:00)
[2018-12-17] MEDS: atorvastatin 20mg tablet PO SCH (07:44)
[2018-12-17] MEDS: ascorbic acid 500mg tablet PO SCH (07:45)
[2018-12-17] MEDS: clopidogrel 75mg tablet PO SCH (07:45)
[2018-12-17] MEDS: citalopram 20mg tablet PO SCH (07:45)
[2018-12-17] MEDS: docusate sod 100mg capsule PO SCH ×2 (07:45→20:00)
[2018-12-17] MEDS: lisinopril 20mg tablet PO SCH (07:47)
[2018-12-17] MEDS: K and/or MAG REPLACEMENT MC SCH (08:00)
[2018-12-17] MEDS: fluticasone nasal spray 16GM bottle NS SCH (08:00)
[2018-12-17] MEDS: potassium Cl 20 mEq SR tablet PO PRN ×3 (09:05→17:22)
[2018-12-17] MEDS: CefTRIAXone 2gm/D5W 50ml 50 ML IV SCH (09:05)
[2018-12-17] MEDS: insulin Lispro (HumaLOG) vial - multi-dose SQ SCH ×2 (10:13→13:47)
--- NOTE | 2018-12-17 16:30 | NUR ---
Patient in room [facility] 355. I have received report from Kimberly PINEDA and had the opportunity to ask questions and assume patient care.
--- NOTE | 2018-12-17 16:34 | NUR ---
pt report given to Branden RN; all questions answered.
--- NOTE | 2018-12-17 16:50 | NUR ---
removed pt's central line; cannula intact. held pressure for 10min. pt tolerated well.
--- NOTE | 2018-12-17 17:00 | NUR ---
removed pt's souza catheter. pt tolerated well. will continue to monitor.
--- NOTE | 2018-12-17 17:30 | NUR ---
pt transported to 355B on surgical hospital bed with all belongings; VSS.
--- NOTE | 2018-12-17 17:40 | NUR ---
Patient arrived to floor, patient was introduced and made accustomed to her room. Patient vitals were taken at this time. Patient hearts sounds were s1s2, and patient respirations were fine crackles. Patient breathing even at this time. Patient had no emmediate needs but requested a light dinner at this time.
[2018-12-17] MEDS ORDERED: VANCOMYCIN LEVEL IV ONE (18:30)
--- NOTE | 2018-12-17 18:30 | NUR ---
Problems reprioritized. Patient report given, questions answered & plan of care reviewed with Giuliana PINEDA.
[2018-12-17] MEDS ORDERED: ipratropium/albuterol 3ml nebule NEB PRN (18:50)
--- NOTE | 2018-12-17 18:55 | NUR ---
Patient in room [facility] 355. I have received report from Branden Monroe and had the opportunity to ask questions and assume patient care. Addendum: 12/17/18 at 1856 by Giuliana Najera RN Amended: Links added.
[2018-12-17] MEDS: albuterol 2.5 MG/3 ML nebule NEB PRN (20:12)
--- NOTE | 2018-12-17 20:30 | NUR ---
noted bilat posterior tibial pulses present by doppler. feet warm bialt. had Rt Tx earlier. tolerated well. given Is unit and using it
--- NOTE | 2018-12-17 21:00 | NUR ---
accucheck done pt had only eaten a yogurt did not feel like eating anything else and covered with insulin for this. dressing to left groin intact with provena wound vac in place and dressing to left calf d/i
[2018-12-17] MEDS: insulin glargine (Lantus) pen - multi-dose SQ SCH (21:27)
--- NOTE | 2018-12-17 23:18 | NUR ---
pt resting eyes closed without s&s of distress at this time.
[2018-12-18] VITALS: BP 154/52
--- NOTE | 2018-12-18 01:15 | NUR ---
pt resting without changes.
--- NOTE | 2018-12-18 03:15 | NUR ---
resting without changes at this time.
--- NOTE | 2018-12-18 04:54 | NUR ---
resting eyes closed without changes.
--- NOTE | 2018-12-18 05:30 | NUR ---
resting without changes.
--- NOTE | 2018-12-18 06:30 | NUR ---
Patient in room [facility] 355. I have received report from Giuliana PINEDA and had the opportunity to ask questions and assume patient care.
--- NOTE | 2018-12-18 06:37 | NUR ---
Problems reprioritized. Patient report given, questions answered & plan of care reviewed with Branden Monroe. Addendum: 12/18/18 at 0638 by Giuliana Najera RN Amended: Links added.
--- NOTE | 2018-12-18 06:43 | NUR ---
Problems reprioritized. Patient report given, questions answered & plan of care reviewed with Branden Monroe. Addendum: 12/18/18 at 0645 by Giuliana Najera RN Amended: Links added.
[2018-12-18 07:00] VITALS: BP 181/63
[2018-12-18] MEDS: docusate sod 100mg capsule PO SCH ×2 (07:38→20:07)
[2018-12-18] MEDS: HYDROcodone/acetaminophen 10/325mg tab PO PRN ×2 (07:39→17:52)
[2018-12-18] MEDS: ascorbic acid 500mg tablet PO SCH (07:40)
[2018-12-18] MEDS: lisinopril 20mg tablet PO SCH (07:40)
[2018-12-18] MEDS: lactobacillus rhamnosus 10,000 MMU CELLS/CAPSULE PO SCH ×2 (07:40→20:07)
[2018-12-18] MEDS: clopidogrel 75mg tablet PO SCH (07:40)
[2018-12-18] MEDS: citalopram 20mg tablet PO SCH (07:41)
[2018-12-18] MEDS: CefTRIAXone 2gm/D5W 50ml 50 ML IV SCH (07:43)
[2018-12-18] MEDS: fluticasone nasal spray 16GM bottle NS SCH (07:43)
[2018-12-18] MEDS: K and/or MAG REPLACEMENT MC SCH (08:00)
[2018-12-18] MEDS: atorvastatin 20mg tablet PO SCH (08:00)
[2018-12-18] MEDS: VANCOmycin 1250MG/NS 250ml Bag 250 ML IV SCH ×2 (09:06→20:08)
[2018-12-18] MEDS: insulin Lispro (HumaLOG) vial - multi-dose SQ SCH (09:31)
[2018-12-18 09:57] LABS: BASOPHILS # (AUTO) 0.1 X10'3 (0-0.2); BASOPHILS % (AUTO) 0.9 % (0-1); EOSINOPHILS # (AUTO) 0.2 X10'3 (0-0.9); EOSINOPHILS % (AUTO) 2.1 % (0-6); HEMATOCRIT 25.2 % (35.0-45.0); HEMOGLOBIN 8.3 g/dl (12.0-16.0); LYMPHOCYTES # (AUTO) 1.4 X10'3 (1.1-4.8); MEAN CORPUSCULAR HEMOGLOBIN 28.2 PG (27.0-31.0); MEAN CORPUSCULAR HGB CONC 32.9 g/dL (33.0-36.5); MEAN CORPUSCULAR VOLUME 85.8 FL (78-98); MEAN PLATELET VOLUME 9.2 FL (7.4-10.4); MONOCYTES # (AUTO) 1.1 X10'3 (0-0.9); MONOCYTES % (AUTO) 9.6 % (2-12); NEUTROPHILS # (AUTO) 8.5 X10'3 (1.8-7.7); NEUTROPHILS % (AUTO) 75.4 % (42-75); PLATELET COUNT 256 X10'3 (140-440); RED BLOOD COUNT 2.94 X10'6 (4.20-5.60); RED CELL DISTRIBUTION WIDTH 17.3 % (11.5-14.5); WHITE BLOOD COUNT 11.3 X10'3 (4.5-11.0)
[2018-12-18 10:32] LABS: ALANINE AMINOTRANSFERASE 31 U/L (12-78); ALBUMIN 2.2 G/DL (3.4-5.0); ALBUMIN/GLOBULIN RATIO 0.6 (1.1-1.5); ALKALINE PHOSPHATASE 88 IU/L (46-116); ANION GAP 8 (8-16); ASPARTATE AMINO TRANSFERASE 16 U/L (10-37); BILIRUBIN,TOTAL 0.5 MG/DL (0.1-1.0); BLOOD UREA NITROGEN 5 MG/DL (7-18); BUN/CREATININE RATIO 7.8 (6.6-38.0); CALCIUM 8.3 MG/DL (8.5-10.1); CHLORIDE 104 MMOL/L (99-107); CREATININE 0.64 MG/DL (0.40-0.90); GLUCOSE 208 MG/DL (70-104); POTASSIUM 3.5 MMOL/L (3.5-5.1); SODIUM 138 MMOL/L (135-145); TOTAL CARBON DIOXIDE 26.2 MMOL/L (24-32); TOTAL PROTEIN 5.9 G/DL (6.4-8.2); eGFR 89 ML/MIN
[2018-12-18 11:00] VITALS: BP 133/65
--- NOTE | 2018-12-18 15:00 | NUR ---
Patient did not finish eating until the lunch time insulin administration time was already passed. Patient will resume at treatment at dinner time at current level of 3.
[2018-12-18 18:00] VITALS: BP 152/51
--- NOTE | 2018-12-18 18:40 | NUR ---
Patient in room [facility] 355. I have received report from SUSIE PINEDA and had the opportunity to ask questions and assume patient care. Addendum: 12/18/18 at 1908 by Giuliana Najera RN Amended: Links added.
--- NOTE | 2018-12-18 18:45 | NUR ---
Problems reprioritized. Patient report given, questions answered & plan of care reviewed with Giuliana PINEDA.
--- NOTE | 2018-12-18 20:00 | NUR ---
pt a/o hs meds given c/o constipation. Mom and her colace given to her with warm prune juice diluted with warm water butter and apple juice x200cc after accucheck done.
[2018-12-18] MEDS: insulin glargine (Lantus) pen - multi-dose SQ SCH (21:32)
--- NOTE | 2018-12-18 22:00 | NUR ---
attempt for bm and up commode to void 250 cc cl yellow and for bm passed gas no stool at this time.
[2018-12-19] VITALS: BP 164/55
--- NOTE | 2018-12-19 | NUR ---
pt up with steady lift to bedside commode to void. pt after 10 min said she couldn't and felt uncomfortable. put back to bed.
--- NOTE | 2018-12-19 00:45 | NUR ---
call to Dr Rodriguez bladder scan showed 716 cc in the bladder. notified of this and orders for souza obtained,
--- NOTE | 2018-12-19 01:20 | NUR ---
#16 souza inserted via sterile technique and 550 out clamped souza then later unclamped it for total output of 1250cc cl yellow urine.
--- NOTE | 2018-12-19 03:27 | NUR ---
resting without changes.
[2018-12-19] MEDS: HYDROcodone/acetaminophen 10/325mg tab PO PRN ×3 (03:45→19:24)
--- NOTE | 2018-12-19 03:47 | NUR ---
pt awoke c/o pain leg and ari at the ankle medicated with norco for this.
--- NOTE | 2018-12-19 05:15 | NUR ---
pt resting eyes closed no changes or s&s of distress.
--- NOTE | 2018-12-19 06:21 | NUR ---
Problems reprioritized. Patient report given, questions answered & plan of care reviewed with Branden Monroe. Addendum: 12/19/18 at 0622 by Giuliana Najera RN Amended: Links added.
[2018-12-19 06:25] LABS: BASOPHILS # (AUTO) 0.1 X10'3 (0-0.2); BASOPHILS % (AUTO) 0.6 % (0-1); EOSINOPHILS # (AUTO) 0.4 X10'3 (0-0.9); EOSINOPHILS % (AUTO) 3.7 % (0-6); HEMATOCRIT 22.3 % (35.0-45.0); HEMOGLOBIN 7.4 g/dl (12.0-16.0); LYMPHOCYTES # (AUTO) 1.1 X10'3 (1.1-4.8); LYMPHOCYTES % (AUTO) 12.2 % (21-51); MEAN CORPUSCULAR HEMOGLOBIN 28.4 PG (27.0-31.0); MEAN CORPUSCULAR VOLUME 86.2 FL (78-98); MEAN PLATELET VOLUME 9.3 FL (7.4-10.4); MONOCYTES # (AUTO) 1.2 X10'3 (0-0.9); MONOCYTES % (AUTO) 13.1 % (2-12); NEUTROPHILS # (AUTO) 6.6 X10'3 (1.8-7.7); NEUTROPHILS % (AUTO) 70.4 % (42-75); PLATELET COUNT 248 X10'3 (140-440); RED BLOOD COUNT 2.59 X10'6 (4.20-5.60); WHITE BLOOD COUNT 9.3 X10'3 (4.5-11.0)
[2018-12-19 06:46] LABS: ALANINE AMINOTRANSFERASE 29 U/L (12-78); ALBUMIN/GLOBULIN RATIO 0.6 (1.1-1.5); ALKALINE PHOSPHATASE 93 IU/L (46-116); ANION GAP 7 (8-16); ASPARTATE AMINO TRANSFERASE 23 U/L (10-37); BILIRUBIN,TOTAL 0.6 MG/DL (0.1-1.0); BLOOD UREA NITROGEN 12 MG/DL (7-18); BUN/CREATININE RATIO 12.4 (6.6-38.0); CALCIUM 8.2 MG/DL (8.5-10.1); CHLORIDE 106 MMOL/L (99-107); CREATININE 0.97 MG/DL (0.40-0.90); GLUCOSE 182 MG/DL (70-104); POTASSIUM 3.4 MMOL/L (3.5-5.1); SODIUM 141 MMOL/L (135-145); TOTAL CARBON DIOXIDE 27.7 MMOL/L (24-32); TOTAL PROTEIN 5.6 G/DL (6.4-8.2); eGFR 55 ML/MIN
[2018-12-19 08:00] VITALS: BP 165/56
[2018-12-19] MEDS: fluticasone nasal spray 16GM bottle NS SCH (08:00)
[2018-12-19] MEDS: docusate sod 100mg capsule PO SCH ×2 (08:31→19:24)
[2018-12-19] MEDS: lactobacillus rhamnosus 10,000 MMU CELLS/CAPSULE PO SCH ×2 (08:32→19:24)
[2018-12-19] MEDS: clopidogrel 75mg tablet PO SCH (08:32)
[2018-12-19] MEDS: ascorbic acid 500mg tablet PO SCH (08:32)
[2018-12-19] MEDS: citalopram 20mg tablet PO SCH (08:33)
[2018-12-19] MEDS: atorvastatin 20mg tablet PO SCH (08:34)
[2018-12-19] MEDS: lisinopril 20mg tablet PO SCH (08:35)
[2018-12-19] MEDS: CefTRIAXone 2gm/D5W 50ml 50 ML IV SCH (08:35)
[2018-12-19] MEDS: VANCOmycin 1250MG/NS 250ml Bag 250 ML IV SCH ×2 (09:42→19:25)
[2018-12-19] MEDS: insulin Lispro (HumaLOG) vial - multi-dose SQ SCH ×3 (09:47→18:53)
[2018-12-19 11:00] VITALS: BP 139/51
[2018-12-19] MEDS: albuterol 2.5 MG/3 ML nebule NEB PRN (15:40)
[2018-12-19] MEDS: potassium Cl 20 mEq SR tablet PO PRN (18:29)
--- NOTE | 2018-12-19 18:38 | NUR ---
Patient in room [facility] 355. I have received report from SUSIE PINEDA and had the opportunity to ask questions and assume patient care. Addendum: 12/19/18 at 1838 by Giuliana Najera RN Amended: Links added.
--- NOTE | 2018-12-19 19:30 | NUR ---
daughter in and talked with vallez filter operator regarding missing hearing aide batteries, and dentures and she brought in more hearing aide batteries for the pt and she she could hear better tonight. pt visiting with daughter afterwards and daughters questions answered for her. daughter was happy the the pt had had a BM today after giving brown loyda prune juice mix to her yesterday.
[2018-12-19 20:00] VITALS: BP 146/44
--- NOTE | 2018-12-19 20:00 | NUR ---
daughter expressed her concerns about her Mother having problems with retention before and concerned if this would interferewith her transfer and care to a rehab unit. daughter also expressed concern that at [facility] they had put one in and it was not put in the bladder fully and it caused her Mother a Great deal of pain. talked to her about informing Dr of her concerns and will have hemodialysis charge nurse in [place] talk with Dc partner integration planner regarding this.
[2018-12-19] MEDS: insulin glargine (Lantus) pen - multi-dose SQ SCH (21:19)
[2018-12-20] VITALS: BP 168/40
--- NOTE | 2018-12-20 01:00 | NUR ---
Daughter (RishabhSHAINA)approached me to talk about the lost denture, glasses, and hearing aid batteries. Our unit was the admitting unit and documentation was given for each of previously mentioned items. Patient was transferred to O/N room 4022 where she remembers "Ephraim" was her nurse. She was then transferred to ICU where Rosie and Colt were attending her mom. She did not see the glasses, dentures or hearing aid batteries after the O/N transfer to ICU. In searching her belongings on our unit the daughter did not see her moms dentures, or hearing aid batteries or glasses. (glasses were the reader type) dentures were a partial upper denture.
--- NOTE | 2018-12-20 02:33 | NUR ---
pt resting eyes closed without s&s of distress. feet warm legs elevated and doppler pulse present bilta. provena wound vac without drainage in the chamber.
--- NOTE | 2018-12-20 04:04 | NUR ---
resting without changes pulses present by doppler feet warm.
--- NOTE | 2018-12-20 04:28 | NUR ---
LAB IN DRAWING BLOOD.
[2018-12-20] MEDS: HYDROcodone/acetaminophen 10/325mg tab PO PRN ×3 (05:32→13:43)
--- NOTE | 2018-12-20 05:46 | NUR ---
Student documentation: I have reviewed and agree with all interventions, assessments performed and documented by Nithya louisStudent Medication Administration: For this medication-pass time frame, all medication were reviewed, dispensed, administered and documented per hospital policy by NITHYA Ceballos RN STUDENT. Addendum: 12/20/18 at 0547 by Giuliana Najera RN Amended: Links added.
[2018-12-20 05:49] LABS: BASOPHILS # (AUTO) 0.1 X10'3 (0-0.2); BASOPHILS % (AUTO) 0.8 % (0-1); EOSINOPHILS # (AUTO) 0.3 X10'3 (0-0.9); HEMATOCRIT 23.2 % (35.0-45.0); HEMOGLOBIN 7.9 g/dl (12.0-16.0); LYMPHOCYTES # (AUTO) 1.4 X10'3 (1.1-4.8); LYMPHOCYTES % (AUTO) 13.4 % (21-51); MEAN CORPUSCULAR HEMOGLOBIN 28.9 PG (27.0-31.0); MEAN CORPUSCULAR HGB CONC 33.9 g/dL (33.0-36.5); MEAN CORPUSCULAR VOLUME 85.3 FL (78-98); MEAN PLATELET VOLUME 9.1 FL (7.4-10.4); MONOCYTES # (AUTO) 1.3 X10'3 (0-0.9); MONOCYTES % (AUTO) 12.6 % (2-12); NEUTROPHILS # (AUTO) 7.2 X10'3 (1.8-7.7); NEUTROPHILS % (AUTO) 70.2 % (42-75); PLATELET COUNT 290 X10'3 (140-440); RED BLOOD COUNT 2.72 X10'6 (4.20-5.60); RED CELL DISTRIBUTION WIDTH 16.9 % (11.5-14.5); WHITE BLOOD COUNT 10.2 X10'3 (4.5-11.0)
[2018-12-20 06:30] LABS: ALANINE AMINOTRANSFERASE 32 U/L (12-78); ALBUMIN 2.1 G/DL (3.4-5.0); ALBUMIN/GLOBULIN RATIO 0.5 (1.1-1.5); ALKALINE PHOSPHATASE 107 IU/L (46-116); ANION GAP 10 (8-16); ASPARTATE AMINO TRANSFERASE 27 U/L (10-37); BILIRUBIN,TOTAL 0.5 MG/DL (0.1-1.0); BLOOD UREA NITROGEN 10 MG/DL (7-18); BUN/CREATININE RATIO 7.2 (6.6-38.0); CHLORIDE 107 MMOL/L (99-107); CREATININE 1.38 MG/DL (0.40-0.90); GLUCOSE 157 MG/DL (70-104); POTASSIUM 3.7 MMOL/L (3.5-5.1); SODIUM 144 MMOL/L (135-145); TOTAL CARBON DIOXIDE 26.7 MMOL/L (24-32); TOTAL PROTEIN 6.2 G/DL (6.4-8.2); eGFR 37 ML/MIN
--- NOTE | 2018-12-20 06:30 | NUR ---
Patient in room [facility] 355. I have received report from Branden PINEDA and had the opportunity to ask questions and assume patient care.
--- NOTE | 2018-12-20 06:30 | NUR ---
Patient in room [facility] 355. I have received report from EDWIN Otero and had the opportunity to ask questions and assume patient care.
--- NOTE | 2018-12-20 06:30 | NUR ---
Patient in room [facility] 355. I have received report from Giuliana PINEDA and had the opportunity to ask questions and assume patient care.
--- NOTE | 2018-12-20 06:37 | NUR ---
Problems reprioritized. Patient report given, questions answered & plan of care reviewed with SUSIE RN.
[2018-12-20 07:57] VITALS: BP 160/71
[2018-12-20] MEDS: fluticasone nasal spray 16GM bottle NS SCH (08:00)
[2018-12-20] MEDS: CefTRIAXone 2gm/D5W 50ml 50 ML IV SCH (08:14)
[2018-12-20] MEDS: ascorbic acid 500mg tablet PO SCH (08:34)
[2018-12-20] MEDS: docusate sod 100mg capsule PO SCH (08:34)
[2018-12-20] MEDS: citalopram 20mg tablet PO SCH (08:35)
[2018-12-20] MEDS: lactobacillus rhamnosus 10,000 MMU CELLS/CAPSULE PO SCH (08:36)
[2018-12-20] MEDS: lisinopril 20mg tablet PO SCH (08:36)
[2018-12-20] MEDS: clopidogrel 75mg tablet PO SCH (08:36)
[2018-12-20] MEDS: atorvastatin 20mg tablet PO SCH (08:37)
[2018-12-20] MEDS ORDERED: amLODIPine 5mg tablet PO SCH (09:05)
[2018-12-20] MEDS: insulin Lispro (HumaLOG) vial - multi-dose SQ SCH ×2 (09:21→14:06)
[2018-12-20 09:26] VITALS: BP 166/61
[2018-12-20] MEDS: VANCOmycin 1250MG/NS 250ml Bag 250 ML IV SCH (09:59)
--- NOTE | 2018-12-20 11:52 | NUR ---
Problems reprioritized. Patient report given, questions answered & plan of care reviewed with Branden RN.
--- NOTE | 2018-12-20 11:54 | NUR ---
Problems reprioritized. Patient report given, questions answered & plan of care reviewed with EDWIN Otero.
--- NOTE | 2018-12-20 12:02 | NUR ---
Student Medication Administration: For this medication-pass time frame, all medication were reviewed, dispensed, administered and documented per hospital policy by oneida Dunlap.
--- NOTE | 2018-12-20 12:02 | NUR ---
Student documentation: I have reviewed and agree with all interventions, assessments performed and documented by Fabi, occupational health nursing director.
--- NOTE | 2018-12-20 13:03 | NUR ---
reassessment: Pt PO 50-75% avg meals not drinking milks. Pt s/p L fem-post tib bypass w/ L leg graft/L licensing worker endarterectomy per MD note. Ensure high protein TIDWM added given healing needs w/ L third toe DM ulcer; pending MD verification prior to sending on trays. LBM 12/19. Will continue to monitor. Rec: 1. continue carb controlled diet 2. ensure high protein TIDWM; pending MD verification prior to sending on trays 3. wt per rx Addendum: 12/20/18 at [address] Amended: Links added.
--- NOTE | 2018-12-20 15:43 | NUR ---
reviewed student nurses physical assessments
--- NOTE | 2018-12-20 16:00 | NUR ---
Patient transfered to [facility], patient transported in [facility] and all belongings went with patient. Patient IV taken out at time of transfer. Patient left with souza catheter and right upper arm extended PIV for antibiotic therapy. Patient family aware of transfer. wound care pictures taken at nd.
[2018-12-21] MEDS ORDERED: lisinopril 20mg tablet PO SCH (08:00)
== END 2018-12-20 16:27 | DRG 252 ==
LOC: ER 22:47 → ED HOLD 12-11 03:20 → ORTHO 4S 12-11 16:50 → ICU 2S 12-15 18:41 → SUR 3N 12-17 17:40
PROVIDERS: ADMIT Internal Medicine; ATTEND Family Medicine
PROC: B42H1ZZ Computerized Tomography (CT Scan) of Bilateral Lower Extremity Arteries using Low Osmolar Contrast (ICD-10-PCS; 2018-12-14)
PROC: B4281ZZ Computerized Tomography (CT Scan) of Bilateral Renal Arteries using Low Osmolar Contrast (ICD-10-PCS; 2018-12-14)
PROC: 04CL0ZZ Extirpation of Matter from Left Femoral Artery, Open Approach (ICD-10-PCS; 2018-12-15)
PROC: 06BQ0ZZ Excision of Left Saphenous Vein, Open Approach (ICD-10-PCS; 2018-12-15)
PROC: 041L09N Bypass Left Femoral Artery to Posterior Tibial Artery with Autologous Venous Tissue, Open Approach (ICD-10-PCS; 2018-12-15)
PROC: 4A02XM4 Measurement of Cardiac Total Activity, External Approach (ICD-10-PCS; 2018-12-15)
PROC: 3E033HZ Introduction of Radioactive Substance into Peripheral Vein, Percutaneous Approach (ICD-10-PCS; 2018-12-15)
PROC: 041L0JN Bypass Left Femoral Artery to Posterior Tibial Artery with Synthetic Substitute, Open Approach (ICD-10-PCS; principal; 2018-12-15 14:06)
DX: E11.52 Type 2 diabetes mellitus with diabetic peripheral angiopathy with gangrene (principal); E43 Unspecified severe protein-calorie malnutrition; J98.11 Atelectasis; N17.9 Acute kidney failure, unspecified; I96 Gangrene, not elsewhere classified; I70.202 Unspecified atherosclerosis of native arteries of extremities, left leg; E11.40 Type 2 diabetes mellitus with diabetic neuropathy, unspecified; L97.529 Non-pressure chronic ulcer of other part of left foot with unspecified severity; D64.9 Anemia, unspecified; E11.621 Type 2 diabetes mellitus with foot ulcer; E78.5 Hyperlipidemia, unspecified; E87.6 Hypokalemia; F01.50 Vascular dementia, unspecified severity, without behavioral disturbance, psychotic disturbance, mood disturbance, and anxiety; F32.9 Major depressive disorder, single episode, unspecified; I10 Essential (primary) hypertension; J44.9 Chronic obstructive pulmonary disease, unspecified; Z86.718 Personal history of other venous thrombosis and embolism; Z86.73 Personal history of transient ischemic attack (TIA), and cerebral infarction without residual deficits; Z90.710 Acquired absence of both cervix and uterus; Z91.041 Radiographic dye allergy status; Z68.29 Body mass index [BMI] 29.0-29.9, adult; Z91.013 Allergy to seafood; Z88.2 Allergy status to sulfonamides; Z91.018 Allergy to other foods; Z91.048 Other nonmedicinal substance allergy status; Z79.899 Other long term (current) drug therapy
CPT/HCPCS: 36415; 70450; 71045; 72191; 73620; 73706; 73721; 78452; 80047; 80053; 80061; 80202; 81001; 82948; 83036; 83605; 83735; 83880; 84145; 84484; 85025; 85610; 85651; 85730; 86140; 86885; 86900; 86901; 86920; 87040; 87081; 87088; 88108; 88300; 88305; 88341; 88342; 93005; 93017; 93922; 93926; 93971; 94640; 94760; 96374; 96375; 97110; 97112; 97116; 97530; 97760; 99285; A4618; A6258; A6402; A6455; A7000; A9500; C1751; C1758; C1768; C9399; G0378; J0280; J0360; J0694; J0696; J1170; J1644; J1815; J2001; J2270; J2370; J2405; J2704; J2710; J2720; J2785; J3010; J3370; J3480; J3490; J7030; J7040; J7120; J7512; Q0163; Q9967